=== PATIENT | female | born 1970 | race African-American/Black ===

== ENCOUNTER 2020-02-26 11:36 | Inpatient (IN) | payer OTHER, MEDICAID ==
[~2020-02-26] VITALS: Ht 172.7 cm; Wt 78.0 kg
[2020-02-26 12:10] LABS: Basophils # (auto) 0 10 ^3/uL (0-0.2); Basophils % (auto) 0.9 % (0.0-2.0); Eosinophils # (auto) 0.2 10 ^3/uL (0-0.8); Eosinophils % (auto) 6.4 % (0.0-7.0); Hematocrit 37.8 % (36.0-46.0); Hemoglobin 12.4 g/dL (12.2-16.2); Lymphocytes # (auto) 1.3 10 ^3/uL (0.4-5.4); Lymphocytes % (auto) 52.2 % (10.0-50.0); Mean Corpuscular Hemoglobin 30.2 pg (28.0-32.0); Mean Corpuscular Hgb Conc. 32.8 g/dL (32.0-36.0); Mean Corpuscular Volume 92.2 fL (80.0-100.0); Monocytes # (auto) 0.1 10 ^3/uL (0-1.3); Monocytes % (auto) 5.5 % (0.0-12.0); Neutrophils # (auto) 0.9 10 ^3/uL (1.6-8.6); Nucleated Red Blood Cells % 0.1 %; Platelet Count (auto) 222 10^3/uL (140-450); Red Cell Distribution Width 13.6 % (11.8-14.3); White Blood Cell 2.6 10^3/uL (4.4-10.8)
[2020-02-26 12:32] LABS: INR 1.03 (0.9-1.15); Partial Thromboplastin Time 25.1 sec (23.0-31.2)
[2020-02-26 12:33] LABS: Alanine Aminotransferase 12 U/L (13-56); Albumin 3.8 g/dL (3.4-5.0); Anion Gap 5 (5-15); Blood Urea Nitrogen 12 mg/dL (7-18); Calcium 8.9 mg/dL (8.5-10.1); Carbon Dioxide 27 mmol/L (21-32); Chloride 108 mmol/L (98-107); Glucose 91 mg/dL (74-106); Magnesium 2.1 mg/dL (1.6-2.6); Potassium 3.9 mmol/L (3.5-5.1); Sodium 140 mmol/L (136-145)
[2020-02-26 12:38] LABS: Alkaline Phosphatase 62 U/L (45-117); Aspartate Aminotransferase 11 U/L (15-37); BUN/Creatinine Ratio 16.9; Bilirubin, Total 0.2 mg/dL (0.2-1.0); GFR African American 112 mL/min; GFR Non-African American 92 mL/min; Total Protein 7.6 g/dL (6.4-8.2)
[2020-02-26] MEDS ORDERED: SODIUM CHLORIDE 0.9% 1,000 ML IVB ONE (13:15)
[2020-02-26 14:00] LABS: INR 1.03 (0.9-1.15)
[2020-02-26] MEDS ORDERED: ONDANSETRON HCL 4 MG/2 ML VIAL IV PRN (14:30)
[2020-02-26] MEDS ORDERED: MORPHINE SULF INJ 2 MG/ML SYRINGE 1ML IV PRN (14:30)
[2020-02-26] MEDS ORDERED: HYDROcodone-ACET 5/325MG TAB PO PRN (14:30)
[2020-02-26] MEDS ORDERED: ACETAMINOPHEN 325 MG TAB PO PRN (14:30)
[2020-02-26] MEDS ORDERED: NITROGLYCERIN 0.4 MG SL TAB SL PRN (14:30)
[2020-02-26] MEDS: SODIUM CHLORIDE 0.9% 1,000 ML IV SCH (14:48)
[2020-02-26] MEDS: ENOXAPARIN SOD 40 MG/0.4 ML SYRINGE SC SCH (14:49)
[2020-02-26] MEDS ORDERED: HYDR-531 PO (17:24)
[2020-02-26] MEDS ORDERED: VENL75CA78 PO (17:24)
[2020-02-26] MEDS ORDERED: TOPI25CA5 PO ×2 (17:24→17:35)
[2020-02-26] MEDS ORDERED: CYAN1TAB11 PO (17:24)
[2020-02-26] MEDS ORDERED: BACL10TA PO (17:24)
[2020-02-26] MEDS ORDERED: ATOR10TA52 PO (17:24)
[2020-02-26] MEDS ORDERED: DICL1GEL50 TD (17:24)
[2020-02-26] MEDS ORDERED: CHOL20007 PO (17:24)
[2020-02-26] MEDS ORDERED: ZOLP10TA6 PO (17:24)
[2020-02-26] MEDS ORDERED: GABA-339 PO (17:24)
[2020-02-26] MEDS ORDERED: ONDA-144 PO (17:27)
[2020-02-26] MEDS ORDERED: ALPR1TAB7 PO (17:27)
[2020-02-26] MEDS ORDERED: FAMO-12 PO (17:28)
[2020-02-26] MEDS ORDERED: ASCO500T11 PO (17:35)
--- NOTE | 2020-02-26 18:07 | NUR ---
RECEIVED PT TO ROOM 221 A APPROX. 1700. A/O X 4, SLIGHTLY DELAYED. AMBULATED WITH ASSIST TO BATHROOM. INSTRUCTED TO CALL FOR HELP OOB, CALL LIGHT IN REACH. VSS. CONTINUE TO MONITOR.
--- NOTE | 2020-02-26 19:30 | NUR ---
Opening Shift Note Assumed care of patient, awake and alert. No S/S of distress/SOB or pain. Instructed on POC and to call for assist PRN, will continue to monitor for changes Q1hr and PRN.
[2020-02-26 20:00] VITALS: BP 122/74
--- NOTE | 2020-02-26 21:15 | NUR ---
Patient is requesting her Xanax (home medication). Spoke to Dr. Mcghee and received orders to continue Xanax 1mg BID PRN. Will administer accordingly.
[2020-02-26] MEDS: ALPRAZolam 0.5 MG TAB PO PRN ×2 (21:39→21:58)
[2020-02-26 22:00] VITALS: BP 122/74
[2020-02-26] MEDS ORDERED: ATORVASTATIN 20 MG TAB PO SCH (22:00)
--- NOTE | 2020-02-27 01:31 | NUR ---
Tele-psych completed earlier in the evening, patient upset about questioning. Recommendations received and entered in chart.
[2020-02-27 05:00] VITALS: BP 101/67
[2020-02-27] MEDS: SODIUM CHLORIDE 0.9% 1,000 ML IV SCH (05:24)
[2020-02-27 06:02] LABS: BUN/Creatinine Ratio 17.9; Calcium 8.8 mg/dL (8.5-10.1); Magnesium 2.2 mg/dL (1.6-2.6); Potassium 3.8 mmol/L (3.5-5.1)
[2020-02-27 06:53] LABS: Basophils # (auto) 0 10 ^3/uL (0-0.2); Basophils % (auto) 0.1 % (0.0-2.0); Eosinophils # (auto) 0 10 ^3/uL (0-0.8); Eosinophils % (auto) 0.1 % (0.0-7.0); Hematocrit 35.9 % (36.0-46.0); Lymphocytes # (auto) 0.7 10 ^3/uL (0.4-5.4); Lymphocytes % (auto) 16.1 % (10.0-50.0); Mean Corpuscular Hemoglobin 30.5 pg (28.0-32.0); Mean Corpuscular Hgb Conc. 33.4 g/dL (32.0-36.0); Mean Corpuscular Volume 91.3 fL (80.0-100.0); Monocytes # (auto) 0.1 10 ^3/uL (0-1.3); Monocytes % (auto) 2.7 % (0.0-12.0); Neutrophils # (auto) 3.5 10 ^3/uL (1.6-8.6); Nucleated Red Blood Cells % 0.1 %; Platelet Count (auto) 221 10^3/uL (140-450); Red Blood Cells 3.93 10^6/uL (4.0-5.20); Red Cell Distribution Width 13.1 % (11.8-14.3); White Blood Cell 4.4 10^3/uL (4.4-10.8)
[2020-02-27 09:00] VITALS: BP 103/74
[2020-02-27] MEDS: ENOXAPARIN SOD 40 MG/0.4 ML SYRINGE SC SCH (09:54)
[2020-02-27] MEDS ORDERED: ASPirin 81 mg TAB PO SCH (10:00)
[2020-02-27] MEDS ORDERED: VENLAFAXINE HCL 37.5mg XR cap PO SCH (10:00)
[2020-02-27 10:09] LABS: Amphetamine Screen, Urine NEGATIVE (NEGATIVE); Barbiturate Scree,Urine POSITIVE (NEGATIVE); Benzodiazephine Screen, Urine POSITIVE (NEGATIVE); Cannabinoid Screen, Urine NEGATIVE (NEGATIVE); Cocaine Screen, Urine NEGATIVE (NEGATIVE); Phencyclidine Screen, Urine NEGATIVE (NEGATIVE)
[2020-02-27 10:17] LABS: Opiate Scree,Urine NEGATIVE (NEGATIVE)
[2020-02-27 10:18] LABS: Urine Bacteria NONE SEEN /hpf (None Seen); Urine Blood Negative /uL (Negative); Urine Mucus FEW (None Seen); Urine WBC 156 /hpf (0 - 5)
--- NOTE | 2020-02-27 12:18 | NUR ---
Nutrition Assessment/consult Notes please see attached link for complete assessment Est Energy needs BW 78 [id number] kcals (23-25 kcal/kgBW), Est Protein needs: 78-85 gms/day (1.0-1.1 gm/kgBW). Will continue to monitor and reassess prn. Addendum: 02/27/20 at [address] Amended: Links added.
[2020-02-27 13:00] VITALS: BP 132/88
[2020-02-27] MEDS: ALPRAZolam 0.5 MG TAB PO PRN (13:07)
[2020-02-27 17:00] VITALS: BP 117/72
--- NOTE | 2020-02-27 18:15 | NUR ---
DR ELBERT ALMONTE, PT MAY BE DISCHARGED.
--- NOTE | 2020-02-27 18:26 | NUR ---
PER DR BERGER, PT MAY BE DISCHARGED HOME.
[2020-02-27] MEDS ORDERED: LEVO-28 PO (18:37)
[2020-02-27] MEDS ORDERED: levoFLOXacin 500 MG TAB PO ONE (18:45)
--- NOTE | 2020-02-27 19:20 | NUR ---
OPENING SHIFT NOTE Assumed care of patient from Lana, Patient is alert and oriented, currently on RA with no S/S of distress or SOB noted at this time. Patient is ambulatory with stand by assist. Current Discharge orders were just put in, will carry out orders. Discussed POC with patient and patient verbalized understandings. Bed in lowest position, locked, side rails x2 up. Call light within reach. Will continue to monitor PRN.
--- NOTE | 2020-02-27 20:00 | NUR ---
IV REMOVAL IV DC'd with clean sterile technique, catheter fully intact. Pressure dressing applied to site. Patient tolerated well.
--- NOTE | 2020-02-27 20:10 | NUR ---
TELE BOX Tele monitor removed and sent to monitor techs.
[2020-02-28] MEDS ORDERED: levoFLOXacin 500 MG TAB PO SCH (10:00)
--- NOTE | 2020-02-28 15:07 | NUR ---
consults Nano was discharged home on 02/27/2020 after hours. No call or page on this patient. Per consult patient may need additional resources. 2nd consult [facility] for safety evaluation and PT. order has been sent to [facility]. Per Suzi service will start on 02/29/2020. Autumn caser in at [facility] will send [facility] authorization. Addendum: 02/28/20 at 1509 by Dot Tiwari Amended: Links added.
== END 2020-02-27 20:20 | disposition home health service (06) | DRG 690 ==
LOC: ER 11:36 → TELE 11:37 → TELE-CENTR 16:39
PROVIDERS: ADMIT Internal Medicine; ATTEND Internal Medicine
DX: N39.0 Urinary tract infection, site not specified (principal); G81.94 Hemiplegia, unspecified affecting left nondominant side; F41.9 Anxiety disorder, unspecified; F43.10 Post-traumatic stress disorder, unspecified; F17.210 Nicotine dependence, cigarettes, uncomplicated; D72.819 Decreased white blood cell count, unspecified; E78.5 Hyperlipidemia, unspecified; F32.9 Major depressive disorder, single episode, unspecified; I10 Essential (primary) hypertension; Z82.3 Family history of stroke; Z82.49 Family history of ischemic heart disease and other diseases of the circulatory system; Z83.3 Family history of diabetes mellitus; Z86.73 Personal history of transient ischemic attack (TIA), and cerebral infarction without residual deficits; Z90.710 Acquired absence of both cervix and uterus; Z88.1 Allergy status to other antibiotic agents; Z88.5 Allergy status to narcotic agent
CPT/HCPCS: 36415; 70450; 70551; 71045; 80048; 80053; 80307; 81001; 83735; 84443; 84484; 85025; 85610; 85730; 87086; 93005; 93306; 93886; 96360; 96361; 96372; 97116; 97530; G0378

== ENCOUNTER → 2021-05-31 | Outpatient (CLI) | payer MEDICARE, MEDICAID ==
[~2021-05-31] MED LIST: ALPR1TAB7 PO; ASCO500T11 PO; ATOR10TA52 PO; BACL10TA PO; CHOL20007 PO; CYAN1TAB11 PO; DICL1GEL50 TD; FAMO-12 PO; GABA-339 PO; HYDR-531 PO; IOHEXOL 350 MG/ML 100ML IJ ONE; LEVO-28 PO; ONDA-144 PO; TOPI25CA5 PO; VENL75CA78 PO; ZOLP10TA6 PO
[2021-05-31 11:19] VITALS: BP 140/82
[2021-05-31 11:48] VITALS: BP 139/84
== END | disposition home or self-care (01) ==
LOC: Rad HDHVI 11:13
PROVIDERS: ATTEND Internal Medicine Cardiovascular Disease
DX: R07.9 Chest pain, unspecified (principal); M47.814 Spondylosis without myelopathy or radiculopathy, thoracic region; M19.019 Primary osteoarthritis, unspecified shoulder
CPT/HCPCS: 71260; G0463; Q9967

== ENCOUNTER → 2021-06-17 | Outpatient (CLI) | payer MEDICARE, MEDICAID ==
[~2021-06-17] MED LIST changes: -IOHEXOL 350 MG/ML 100ML IJ ONE
== END | disposition home or self-care (01) ==
LOC: Rad HDHVI 10:43
PROVIDERS: ATTEND Internal Medicine Cardiovascular Disease
DX: I10 Essential (primary) hypertension (principal); E78.5 Hyperlipidemia, unspecified
CPT/HCPCS: 93306

== ENCOUNTER → 2021-06-23 | Outpatient (CLI) | payer MEDICARE, MEDICAID ==
[~2021-06-23] VITALS: Ht 170.2 cm; Wt 92.1 kg
[~2021-06-23] MED LIST changes: +ADENOSINE 77 MG in GIVE UN-DILUTED 0 ML IV ONE; +ADENOSINE 90 MG/30 ML INJ IV ONE
== END | disposition home or self-care (01) ==
LOC: Rad HDHVI 13:46
PROVIDERS: ATTEND Internal Medicine Cardiovascular Disease
DX: R07.9 Chest pain, unspecified (principal); R94.31 Abnormal electrocardiogram [ECG] [EKG]; R42 Dizziness and giddiness; R78.5 Finding of other psychotropic drug in blood
CPT/HCPCS: 78452; 93005; 96374; 96375; A9500; J0153